=== PATIENT | female | born 1955 | race Caucasian/White ===

== ENCOUNTER → 2017-01-17 | Outpatient (CLI) | payer OTHER | END | disposition home or self-care (01) | LOC: CFH 08:34 | PROVIDERS: ATTEND Family Medicine | DX: M50.323 Other cervical disc degeneration at C6-C7 level (principal); M50.222 Other cervical disc displacement at C5-C6 level; M48.02 Spinal stenosis, cervical region; M51.36 Other intervertebral disc degeneration, lumbar region; M41.86 Other forms of scoliosis, lumbar region; M25.551 Pain in right hip | CPT/HCPCS: 72050; 72110 ==

== ENCOUNTER 2017-06-16 10:16 | Emergency (ER) | payer OTHER ==
[~2017-06-16] VITALS: Ht 160 cm; Wt 65.0 kg
[2017-06-16] MEDS ORDERED: HYDROmorphone 2 MG/ML, 1ML ONE ×2 (11:31→12:22)
[2017-06-16] MEDS: HYDROmorphone 1 MG/ML, 1ML IVPush PRN ×2 (11:35→12:29)
[2017-06-16 11:42] LABS: HEMATOCRIT 45.2 % (34.6-47.8); HEMOGLOBIN 15.1 g/dL (11.7-16.4); WHITE BLOOD COUNT 11.7 x10^3/uL (3.4-10)
[2017-06-16 11:50] LABS: ASPARTATE AMINO TRANSFERASE 6 U/L (15-37); BLOOD UREA NITROGEN 9 mg/dL (7-18)
[2017-06-16 12:49] LABS: PATH.CAST-FLAG NOT PRESENT; SPERM-FLAG NOT PRESENT; SRC-FLAG NOT PRESENT; XTAL-FLAG NOT PRESENT; YLC-FLAG NOT PRESENT
[2017-06-16] MEDS ORDERED: KETOROLAC 30 MG/1 ML ONE (13:06)
[2017-06-16] MEDS ORDERED: KETOROLAC 30 MG/1 ML IVPush ONE (13:30)
[2017-06-16] MEDS ORDERED: ONDANSETRON 2MG/ML, 2ML IVPush ONE (14:00)
[2017-06-16] MEDS ORDERED: ONDANSETRON 2MG/ML, 2ML ONE (14:15)
[2017-06-16 14:25] VITALS: BP 104/53
[2017-06-16] MEDS ORDERED: DEXAMETHASONE 4 MG/ML, 5ML ONE (14:58)
[2017-06-16] MEDS ORDERED: DEXAMETHASONE 4 MG/ML, 1ML IM ONE (15:00)
== END 2017-06-16 15:11 | disposition home or self-care (01) ==
LOC: ED 12:45
DX: M54.42 Lumbago with sciatica, left side (principal)
CPT/HCPCS: 36415; 72148; 74176; 80053; 81001; 85025; 96372; 96374; 96375; 96376; 99285; J1100; J1170; J1885; J2405